=== PATIENT | female | born 1980 | race African-American/Black ===

== ENCOUNTER 2016-08-11 13:05 | Emergency (ER) | payer BC ==
[~2016-08-11] VITALS: Ht 154.9 cm; Wt 79.4 kg
[~2016-08-11 13:05] MED LIST: ANTIVERT25 MG PO; IBUPROFEN 600600 M1 PO; KEFLEX500 MG PO; METHOCARBAMOL PO; NAPROSYN500 MG PO; NORCO 5-325 TA1 EACH PO; ONDANSETRON HCL4 M2 PO; ZOFRAN ODT4 MG PO
[2016-08-11] MEDS ORDERED: METHOCARBAMOL500 M2 PO (13:17)
[2016-08-11] MEDS ORDERED: METHYLPREDNISOLO4 M1 PO (13:17)
[2016-08-11 14:32] LABS: ABSOLUTE NEUTROPHILS 8.2 thou/uL (1.4-8.2); BASOPHILS 0.7 % (0.0-2.0); EOSINOPHILS 0.2 % (0.0-3.0); HEMATOCRIT 37.8 % (37.0-47.0); HEMOGLOBIN 12.7 gm/dL (12.0-15.0); LYMPHOCYTES 16.5 % (24.0-44.0); MCH 24.9 pg (26.0-34.0); MCHC 33.5 g/dL (28.0-37.0); MCV 74.2 fL (80.0-100.0); MONOCYTES 6.1 % (1.0-8.0); PLATELET COUNT 298 thou/uL (150-400); POLYS 76.5 % (36.0-66.0); RBC 5.09 mil/uL (4.20-5.00); RDW 13.8 % (10.5-14.5); WBC 10.7 thou/uL (4.0-11.0)
[2016-08-11 14:35] LABS: MANUAL DIFF NO
[2016-08-11 14:39] LABS: CALCIUM 9.6 mg/dL (8.5-10.1); CREATININE 1.1 mg/dL (0.6-1.3)
[2016-08-11] MEDS ORDERED: HYDROXYZINE HCL25 M1 PO (15:29)
== END 2016-08-11 15:49 | disposition home or self-care (01) ==
LOC: ER 13:05
PROVIDERS: Nurse Practitioner Family
DX: K11.20 Sialoadenitis, unspecified (principal); T78.1XXA Other adverse food reactions, not elsewhere classified, initial encounter; D57.3 Sickle-cell trait; F41.9 Anxiety disorder, unspecified; Z86.2 Personal history of diseases of the blood and blood-forming organs and certain disorders involving the immune mechanism; X58.XXXA Exposure to other specified factors, initial encounter; Z90.710 Acquired absence of both cervix and uterus

== ENCOUNTER 2016-08-22 19:11 | Emergency (ER) | payer BC ==
[~2016-08-22] VITALS: Ht 154.9 cm; Wt 79.4 kg
[~2016-08-22 19:11] MED LIST changes: +HYDROXYZINE HCL25 M1 PO; +METHOCARBAMOL500 M2 PO; +METHYLPREDNISOLO4 M1 PO
[2016-08-22] MEDS ORDERED: FLEXERIL PO ×2 (19:22→20:03)
[2016-08-22] MEDS ORDERED: REGLAN 10 MG TA10 MG PO (19:22)
[2016-08-22] MEDS ORDERED: NORCO 5-325 TA1 EACH PO (20:00)
[2016-08-22] MEDS ORDERED: PREDNISONE 20 M20 MG PO (20:03)
== END 2016-08-22 20:23 | disposition home or self-care (01) ==
LOC: ER 19:11
DX: M51.26 Other intervertebral disc displacement, lumbar region (principal); F41.9 Anxiety disorder, unspecified; D57.3 Sickle-cell trait; Z86.2 Personal history of diseases of the blood and blood-forming organs and certain disorders involving the immune mechanism

== ENCOUNTER 2016-09-08 21:39 | Emergency (ER) | payer BC ==
[~2016-09-08] VITALS: Ht 154.9 cm; Wt 77.1 kg
[~2016-09-08 21:39] MED LIST changes: +FLEXERIL PO; +PREDNISONE 20 M20 MG PO; +REGLAN 10 MG TA10 MG PO
[2016-09-08] MEDS ORDERED: FLEXERIL PO (22:51)
[2016-09-08] MEDS ORDERED: MEDROLDOSEPACK PO (22:51)
[2016-09-08] MEDS ORDERED: MOBIC15 MG PO (22:51)
== END 2016-09-08 23:35 | disposition home or self-care (01) ==
LOC: ER 21:39
DX: T78.1XXA Other adverse food reactions, not elsewhere classified, initial encounter (principal); M54.31 Sciatica, right side; F41.9 Anxiety disorder, unspecified; D57.3 Sickle-cell trait; F17.210 Nicotine dependence, cigarettes, uncomplicated; Z90.710 Acquired absence of both cervix and uterus; Z86.2 Personal history of diseases of the blood and blood-forming organs and certain disorders involving the immune mechanism; X58.XXXA Exposure to other specified factors, initial encounter

== ENCOUNTER 2017-02-01 13:24 | Emergency (ER) | payer BC ==
[~2017-02-01] VITALS: Ht 154.9 cm; Wt 96.6 kg
[~2017-02-01 13:24] MED LIST changes: +ATIVAN0.5 MG PO; +BACTRIM DS TAB1 EACH PO; +MEDROLDOSEPACK PO; +MOBIC15 MG PO
[2017-02-01] MEDS ORDERED: BENADRYL25 MG PO (13:27)
[2017-02-01] MEDS ORDERED: FLEXERIL PO (13:28)
[2017-02-01] MEDS ORDERED: ZYRTEC10 M2 PO (14:12)
[2017-02-01] MEDS ORDERED: PREDNISONE 20 M20 MG PO (14:12)
[2017-02-01] MEDS ORDERED: PEPCID20 MG PO (14:12)
== END 2017-02-01 15:35 | disposition home or self-care (01) ==
LOC: ER 13:24
DX: T78.1XXA Other adverse food reactions, not elsewhere classified, initial encounter (principal); X58.XXXA Exposure to other specified factors, initial encounter; F41.9 Anxiety disorder, unspecified; D57.3 Sickle-cell trait; Z86.2 Personal history of diseases of the blood and blood-forming organs and certain disorders involving the immune mechanism; F17.210 Nicotine dependence, cigarettes, uncomplicated; F10.99 Alcohol use, unspecified with unspecified alcohol-induced disorder; Z90.710 Acquired absence of both cervix and uterus; Z91.013 Allergy to seafood

== ENCOUNTER 2017-03-01 00:05 | Emergency (ER) | payer BC ==
[~2017-03-01] VITALS: Ht 154.9 cm; Wt 96.6 kg
[~2017-03-01 00:05] MED LIST changes: +BENADRYL25 MG PO; +PEPCID20 MG PO; +ZYRTEC10 M2 PO
[2017-03-01] MEDS ORDERED: NORCO 5-325 TA1 EACH PO (02:30)
[2017-03-01] MEDS ORDERED: DOXYCYCLINE 10100 MG PO (02:30)
== END 2017-03-01 03:08 | disposition home or self-care (01) ==
LOC: ER 00:05
DX: L02.31 Cutaneous abscess of buttock (principal); F41.9 Anxiety disorder, unspecified; F17.210 Nicotine dependence, cigarettes, uncomplicated

== ENCOUNTER 2017-07-25 11:34 | Emergency (ER) | payer BC ==
[~2017-07-25] VITALS: Ht 152.4 cm; Wt 90.7 kg
[~2017-07-25 11:34] MED LIST changes: +DOXYCYCLINE 10100 MG PO
[2017-07-25 12:25] LABS: URINE BILIRUBIN NEGATIVE (Negative); URINE BLOOD NEGATIVE (Negative); URINE CLARITY CLEAR; URINE COLOR YELLOW; URINE GLUCOSE-RANDOM* NEGATIVE (Negative); URINE KETONES NEGATIVE (Negative); URINE LEUKOCYTES-REFLEX NEGATIVE (Negative); URINE NITRITE-REFLEX NEGATIVE (Negative); URINE PROTEIN (DIPSTICK) NEGATIVE (Negative); URINE SPECIFIC GRAVITY 1.025 (1.005-1.035); URINE UROBILINOGEN 0.2 E.U./dl (0.2-1.0)
[2017-07-25 13:12] LABS: ABSOLUTE NEUTROPHILS 2.3 thou/uL (1.4-8.2); BASOPHILS 1.2 % (0.0-2.0); EOSINOPHILS 2.4 % (0.0-3.0); HEMATOCRIT 37.5 % (37.0-47.0); HEMOGLOBIN 12.3 gm/dL (12.0-15.0); MCH 23.9 pg (26.0-34.0); MCHC 32.7 g/dL (28.0-37.0); MCV 73.2 fL (80.0-100.0); MONOCYTES 7.9 % (1.0-8.0); PLATELET COUNT 344 thou/uL (150-400); POLYS 45.5 % (36.0-66.0); RBC 5.13 mil/uL (4.20-5.00); RDW 14.4 % (10.5-14.5); WBC 5.1 thou/uL (4.0-11.0)
[2017-07-25 13:17] LABS: CALCIUM 9.3 mg/dL (8.5-10.1); POTASSIUM 3.8 mmol/L (3.5-5.1)
[2017-07-25 13:24] LABS: ALBUMIN 3.7 g/dL (3.4-5.0); TOTAL BILIRUBIN 0.4 mg/dL (<0.1-1.0); TOTAL PROTEIN 7.8 g/dL (6.4-8.2)
[2017-07-25] MEDS ORDERED: NORCO 5-325 TA1 EACH PO (15:27)
[2017-07-25] MEDS ORDERED: SENNA-DOCUSATE1 EACH PO (15:27)
[2017-07-25 16:35] VITALS: BP 123/74
== END 2017-07-25 16:37 | disposition home or self-care (01) ==
LOC: ER 11:34
PROVIDERS: Emergency Medicine
DX: M25.552 Pain in left hip (principal); M25.551 Pain in right hip; R10.32 Left lower quadrant pain; F41.9 Anxiety disorder, unspecified; F17.210 Nicotine dependence, cigarettes, uncomplicated; Z91.013 Allergy to seafood; Z90.710 Acquired absence of both cervix and uterus

== ENCOUNTER 2017-08-23 23:16 | Emergency (ER) | payer BC ==
[~2017-08-23] VITALS: Ht 152.4 cm; Wt 96.2 kg
[~2017-08-23 23:16] MED LIST changes: +SENNA-DOCUSATE1 EACH PO
[2017-08-23 23:59] LABS: URINE BILIRUBIN NEGATIVE (Negative); URINE BLOOD NEGATIVE (Negative); URINE CLARITY SL CLOUDY; URINE COLOR YELLOW; URINE GLUCOSE-RANDOM* NEGATIVE (Negative); URINE KETONES NEGATIVE (Negative); URINE LEUKOCYTES-REFLEX NEGATIVE (Negative); URINE NITRITE-REFLEX NEGATIVE (Negative); URINE PROTEIN (DIPSTICK) NEGATIVE (Negative); URINE SPECIFIC GRAVITY 1.025 (1.005-1.035); URINE UROBILINOGEN 0.2 E.U./dl (0.2-1.0)
[2017-08-24 00:12] LABS: ABSOLUTE NEUTROPHILS 2.5 thou/uL (1.4-8.2); BASOPHILS 0.9 % (0.0-2.0); EOSINOPHILS 2.7 % (0.0-3.0); HEMATOCRIT 36.1 % (37.0-47.0); HEMOGLOBIN 11.8 gm/dL (12.0-15.0); LYMPHOCYTES 53.2 % (24.0-44.0); MCH 24.2 pg (26.0-34.0); MCHC 32.7 g/dL (28.0-37.0); MCV 73.9 fL (80.0-100.0); MONOCYTES 7.1 % (1.0-8.0); PLATELET COUNT 302 thou/uL (150-400); POLYS 36.1 % (36.0-66.0); RBC 4.89 mil/uL (4.20-5.00); RDW 14.2 % (10.5-14.5)
[2017-08-24 00:30] LABS: ANION GAP 12 mmol/L (7-16); BUN 13 mg/dL (7-18); CALCIUM 8.7 mg/dL (8.5-10.1); CHLORIDE 103 mmol/L (98-107); CO2 24 mmol/L (21-32); GLUCOSE 148 mg/dL (74-106); POTASSIUM 3.8 mmol/L (3.5-5.1); SODIUM 139 mmol/L (136-145)
[2017-08-24 00:34] LABS: ALBUMIN 3.5 g/dL (3.4-5.0); DIRECT BILIRUBIN < 0.1 mg/dL (<0.1-0.3); LIPASE 137 U/L (73-393); SGOT 28 U/L (15-37); SGPT 32 U/L (30-65); TOTAL BILIRUBIN 0.2 mg/dL (<0.1-1.0); TOTAL PROTEIN 7.4 g/dL (6.4-8.2)
[2017-08-24] MEDS ORDERED: PHENERGAN 25 MG25 M1 PO (03:19)
== END 2017-08-24 04:00 | disposition home or self-care (01) ==
LOC: ER 23:16
PROVIDERS: Emergency Medicine
DX: R11.2 Nausea with vomiting, unspecified (principal); R10.30 Lower abdominal pain, unspecified; F41.9 Anxiety disorder, unspecified; F17.210 Nicotine dependence, cigarettes, uncomplicated; Z86.2 Personal history of diseases of the blood and blood-forming organs and certain disorders involving the immune mechanism; Z90.710 Acquired absence of both cervix and uterus; Z88.8 Allergy status to other drugs, medicaments and biological substances; Z91.013 Allergy to seafood

== ENCOUNTER 2017-10-21 15:31 | Emergency (ER) | payer BC ==
[~2017-10-21] VITALS: Ht 154.9 cm; Wt 94.3 kg
--- NOTE | ~2017-10-21 | EKG ---
[address] [address] ELECTROCARDIOGRAM REPORT Name: WARREN OSBORNE Tess Room #: [facility]#: [id number] Admission: 10/21/17 Attend Phys: Discharge: 10/21/17 Date of : 76 Report #: [id number] THIS REPORT FOR: //name// [facility] ED Test Date: 2017-10-21 Test Time: 15:46:02 Pat Name: WARREN OSBORNE Department: Room: Gender: F Licensed Midwife: lindseygj : 1980 Requested By: Pardeep Jacob Order Number: [id number] MD: Juan Luis Rockwell Measurements Intervals [place] Rate: 81 P: 60 MI: 144 QRS: 18 QRSD: 88 T: 21 QT: 386 QTc: 448 Interpretive Statements Sinus rhythm Normal tracing Compared to ECG 12/28/2016 21:14:20 No significant changes Electronically Signed On 10-22-2017 7:43:44 CDT by Juan Luis Rockwell [email or web address] <ELECTRONICALLY SIGNED> By: Juan Luis Rockwell MD, [facility] 10/22/17 0743 D: 05/1545 154 Juan Luis Rockwell MD, FACC /EPI
[~2017-10-21 15:31] MED LIST changes: +PHENERGAN 25 MG25 M1 PO
[2017-10-21 16:01] LABS: ABSOLUTE NEUTROPHILS 2.4 thou/uL (1.4-8.2); BASOPHILS 0.9 % (0.0-2.0); EOSINOPHILS 1.4 % (0.0-3.0); HEMATOCRIT 38.8 % (37.0-47.0); HEMOGLOBIN 12.7 gm/dL (12.0-15.0); LYMPHOCYTES 45.9 % (24.0-44.0); MCH 23.8 pg (26.0-34.0); MCHC 32.7 g/dL (28.0-37.0); MCV 72.8 fL (80.0-100.0); MONOCYTES 7.9 % (1.0-8.0); PLATELET COUNT 315 thou/uL (150-400); POLYS 43.9 % (36.0-66.0); RBC 5.33 mil/uL (4.20-5.00); WBC 5.6 thou/uL (4.0-11.0)
[2017-10-21 16:14] LABS: ANION GAP 9 mmol/L (7-16); BUN 12 mg/dL (7-18); CALCIUM 9.8 mg/dL (8.5-10.1); CHLORIDE 103 mmol/L (98-107); CO2 26 mmol/L (21-32); CREATININE 1.2 mg/dL (0.6-1.0); GLUCOSE 127 mg/dL (74-106); POTASSIUM 4.1 mmol/L (3.5-5.1); SODIUM 138 mmol/L (136-145)
[2017-10-21 16:23] LABS: TROPONIN-I < 0.04 ng/mL (<0.06)
[2017-10-21 17:13] LABS: URINE BILIRUBIN NEGATIVE (Negative); URINE BLOOD NEGATIVE (Negative); URINE CLARITY CLEAR; URINE COLOR YELLOW; URINE GLUCOSE-RANDOM* NEGATIVE (Negative); URINE KETONES NEGATIVE (Negative); URINE LEUKOCYTES-REFLEX NEGATIVE (Negative); URINE NITRITE-REFLEX NEGATIVE (Negative); URINE PROTEIN (DIPSTICK) NEGATIVE (Negative); URINE SPECIFIC GRAVITY 1.015 (1.005-1.035); URINE UROBILINOGEN 0.2 E.U./dl (0.2-1.0)
== END 2017-10-21 17:31 | disposition home or self-care (01) ==
LOC: ER 15:31
PROVIDERS: Physician Assistant
DX: R55 Syncope and collapse (principal); R42 Dizziness and giddiness; R53.1 Weakness; F41.9 Anxiety disorder, unspecified; D57.3 Sickle-cell trait; F17.210 Nicotine dependence, cigarettes, uncomplicated; Z91.013 Allergy to seafood; Z86.2 Personal history of diseases of the blood and blood-forming organs and certain disorders involving the immune mechanism

== ENCOUNTER 2018-03-30 20:24 | Emergency (ER) | payer BC ==
[~2018-03-30] VITALS: Ht 154.9 cm; Wt 102.1 kg
[2018-03-30 21:05] LABS: ABSOLUTE NEUTROPHILS 3.1 thou/uL (1.4-8.2); BASOPHILS 1.1 % (0.0-2.0); EOSINOPHILS 2.4 % (0.0-3.0); HEMATOCRIT 40.8 % (37.0-47.0); HEMOGLOBIN 13.6 gm/dL (12.0-15.0); LYMPHOCYTES 43.4 % (24.0-44.0); MCH 24.1 pg (26.0-34.0); MCHC 33.3 g/dL (28.0-37.0); MCV 72.3 fL (80.0-100.0); MONOCYTES 11.2 % (1.0-8.0); PLATELET COUNT 340 thou/uL (150-400); POLYS 41.9 % (36.0-66.0); RBC 5.65 mil/uL (4.20-5.00); RDW 14.5 % (10.5-14.5); WBC 7.5 thou/uL (4.0-11.0)
[2018-03-30 21:12] LABS: CALCIUM 9.8 mg/dL (8.5-10.1); CREATININE 1.2 mg/dL (0.6-1.0); POTASSIUM 3.6 mmol/L (3.5-5.1)
[2018-03-30 21:18] LABS: TOTAL BILIRUBIN 0.4 mg/dL (<0.1-1.0); TOTAL PROTEIN 8.5 g/dL (6.4-8.2)
[2018-03-30 21:58] LABS: URINE BILIRUBIN NEGATIVE (Negative); URINE BLOOD NEGATIVE (Negative); URINE CLARITY CLEAR; URINE COLOR YELLOW; URINE GLUCOSE-RANDOM* NEGATIVE (Negative); URINE KETONES NEGATIVE (Negative); URINE LEUKOCYTES NEGATIVE (Negative); URINE NITRITE NEGATIVE (Negative); URINE PROTEIN (DIPSTICK) NEGATIVE (Negative); URINE SPECIFIC GRAVITY <= 1.005 (1.005-1.035); URINE UROBILINOGEN 0.2 E.U./dl (0.2-1.0)
[2018-03-30] MEDS ORDERED: NORFLEX100 MG PO (23:08)
[2018-03-30] MEDS ORDERED: PREDNISONE 10 M10 MG PO (23:08)
[2018-03-30] MEDS ORDERED: ZOFRAN ODT4 MG PO (23:08)
[2018-03-30] MEDS ORDERED: NORCO 5-325 TA1 EACH PO (23:27)
[2018-03-30 23:41] VITALS: BP 145/99
== END 2018-03-30 23:43 | disposition home or self-care (01) ==
LOC: ER 20:24
PROVIDERS: Physician Assistant
DX: R11.2 Nausea with vomiting, unspecified (principal); M54.42 Lumbago with sciatica, left side; F17.210 Nicotine dependence, cigarettes, uncomplicated; E66.01 Morbid (severe) obesity due to excess calories; K21.9 Gastro-esophageal reflux disease without esophagitis; M48.00 Spinal stenosis, site unspecified; Z68.41 Body mass index [BMI] 40.0-44.9, adult; Z91.013 Allergy to seafood; Z90.710 Acquired absence of both cervix and uterus; Z86.2 Personal history of diseases of the blood and blood-forming organs and certain disorders involving the immune mechanism

== ENCOUNTER 2018-09-22 19:14 | Emergency (ER) | payer BC ==
[~2018-09-22] VITALS: Ht 152.4 cm; Wt 49.9 kg
[~2018-09-22 19:14] MED LIST changes: +NORFLEX100 MG PO; +PREDNISONE 10 M10 MG PO
[2018-09-22] MEDS ORDERED: LEXAPRO20 MG PO (19:30)
[2018-09-22] MEDS ORDERED: OMEPRAZOLE 20 M20 M1 PO (19:30)
[2018-09-22] MEDS ORDERED: FLONASE 0.05%50 MCG NASAL (19:30)
[2018-09-22] MEDS ORDERED: IBUPROFEN200 M1 PO (19:31)
[2018-09-22] MEDS ORDERED: IBUPROFEN 600600 M1 PO (19:34)
[2018-09-22] MEDS ORDERED: AMOXICILLIN500 M1 PO (19:34)
[2018-09-22 19:43] VITALS: BP 130/79
== END 2018-09-22 19:46 | disposition home or self-care (01) ==
LOC: ER 19:14
DX: H66.91 Otitis media, unspecified, right ear (principal); H72.91 Unspecified perforation of tympanic membrane, right ear; F17.210 Nicotine dependence, cigarettes, uncomplicated; Z90.710 Acquired absence of both cervix and uterus; Z79.899 Other long term (current) drug therapy

== ENCOUNTER 2018-10-27 17:17 | Emergency (ER) | payer BC ==
[~2018-10-27] VITALS: Ht 154.9 cm; Wt 95.3 kg
[~2018-10-27 17:17] MED LIST changes: +AMOXICILLIN500 M1 PO; +FLONASE 0.05%50 MCG NASAL; +IBUPROFEN200 M1 PO; +LEXAPRO20 MG PO; +OMEPRAZOLE 20 M20 M1 PO
[2018-10-27 19:54] VITALS: BP 110/63
== END 2018-10-27 19:56 | disposition home or self-care (01) ==
LOC: ER 17:17
DX: L02.211 Cutaneous abscess of abdominal wall (principal); F41.9 Anxiety disorder, unspecified; E66.01 Morbid (severe) obesity due to excess calories; F17.210 Nicotine dependence, cigarettes, uncomplicated; Z68.39 Body mass index [BMI] 39.0-39.9, adult; Z91.013 Allergy to seafood; Z90.710 Acquired absence of both cervix and uterus; Z86.2 Personal history of diseases of the blood and blood-forming organs and certain disorders involving the immune mechanism

== ENCOUNTER 2019-06-06 12:41 | Emergency (ER) | payer BC ==
[~2019-06-06] VITALS: Ht 152.4 cm; Wt 86.6 kg
[2019-06-06 13:38] LABS: URINE BILIRUBIN 1+ (Negative); URINE BLOOD TRACE (Negative); URINE CLARITY CLEAR; URINE COLOR YELLOW; URINE GLUCOSE-RANDOM* NEGATIVE (Negative); URINE KETONES 1+ (Negative); URINE LEUKOCYTES-REFLEX NEGATIVE (Negative); URINE NITRITE-REFLEX NEGATIVE (Negative); URINE PROTEIN (DIPSTICK) NEGATIVE (Negative); URINE SPECIFIC GRAVITY >= 1.030 (1.005-1.035)
[2019-06-06 13:40] LABS: ICTOTEST (BILI CONFIRMATORY) Positive (Negative)
[2019-06-06 13:50] LABS: EOSINOPHILS 1.4 % (0.0-3.0); HEMATOCRIT 43.2 % (37.0-47.0); HEMOGLOBIN 14.3 gm/dL (12.0-15.0); LYMPHOCYTES 40.4 % (24.0-44.0); MCH 24.7 pg (26.0-34.0); MCV 74.9 fL (80.0-100.0); MONOCYTES 7.3 % (1.0-8.0); PLATELET COUNT 294 thou/uL (150-400); POLYS 49.9 % (36.0-66.0); RBC 5.77 mil/uL (4.20-5.00); RDW 14.6 % (10.5-14.5); WBC 6.1 thou/uL (4.0-11.0)
[2019-06-06 14:04] LABS: CALCIUM 9.8 mg/dL (8.5-10.1); CREATININE 1.1 mg/dL (0.6-1.0); POTASSIUM 3.5 mmol/L (3.5-5.1)
[2019-06-06 14:10] LABS: ALBUMIN 4.1 g/dL (3.4-5.0); TOTAL BILIRUBIN 0.7 mg/dL (<0.1-1.0); TOTAL PROTEIN 8.5 g/dL (6.4-8.2)
[2019-06-06 15:07] VITALS: BP 129/76
[2019-06-06] MEDS ORDERED: MECLIZINE HCL25 MG PO (15:53)
[2019-06-06] MEDS ORDERED: ONDANSETRON HCL4 M2 PO (15:53)
[2019-06-06] MEDS ORDERED: NORCO 5-325 TA1 EAC1 PO (15:55)
== END 2019-06-06 16:10 | disposition home or self-care (01) ==
LOC: ER 12:41
PROVIDERS: Physician Assistant
DX: R10.32 Left lower quadrant pain (principal); R11.2 Nausea with vomiting, unspecified; R05 Cough; E66.01 Morbid (severe) obesity due to excess calories; D57.3 Sickle-cell trait; F41.9 Anxiety disorder, unspecified; F17.210 Nicotine dependence, cigarettes, uncomplicated; Z68.37 Body mass index [BMI] 37.0-37.9, adult; Z90.710 Acquired absence of both cervix and uterus; Z86.2 Personal history of diseases of the blood and blood-forming organs and certain disorders involving the immune mechanism; Z91.013 Allergy to seafood

== ENCOUNTER 2020-07-23 18:14 | Emergency (ER) | payer OTHER ==
[~2020-07-23] VITALS: Ht 152.4 cm; Wt 77.1 kg
[~2020-07-23 18:14] MED LIST changes: +MECLIZINE HCL25 MG PO; +NORCO 5-325 TA1 EAC1 PO
[2020-07-23] MEDS ORDERED: CHANTIX1 MG PO (19:20)
[2020-07-23] MEDS ORDERED: VITAMIN D3 COM1 EACH PO (19:21)
[2020-07-23 19:24] LABS: URINE BILIRUBIN NEGATIVE (Negative); URINE BLOOD NEGATIVE (Negative); URINE CLARITY CLEAR; URINE COLOR YELLOW; URINE GLUCOSE-RANDOM* NEGATIVE (Negative); URINE KETONES NEGATIVE (Negative); URINE LEUKOCYTES-REFLEX NEGATIVE (Negative); URINE NITRITE-REFLEX NEGATIVE (Negative); URINE PROTEIN (DIPSTICK) NEGATIVE (Negative); URINE SPECIFIC GRAVITY 1.025 (1.005-1.035); URINE UROBILINOGEN 0.2 E.U./dl (0.2-1.0)
[2020-07-23 19:40] LABS: AMP/METHAMP Negative (Negative); BARBITURATES Negative (Negative); BENZODIAZEPINES Negative (Negative); COCAINE Negative (Negative); METHADONE Negative (Negative); OPIATES Negative (Negative); PCP Negative (Negative)
[2020-07-23 20:13] LABS: ABSOLUTE NEUTROPHILS 5.6 thou/uL (1.4-8.2); BASOPHILS 0.5 % (0.0-2.0); EOSINOPHILS 0.6 % (0.0-3.0); HEMATOCRIT 42.1 % (37.0-47.0); HEMOGLOBIN 13.8 gm/dL (12.0-15.0); LYMPHOCYTES 22.6 % (24.0-44.0); MCH 25.3 pg (26.0-34.0); MCHC 32.7 g/dL (28.0-37.0); MCV 77.3 fL (80.0-100.0); MONOCYTES 3.2 % (1.0-8.0); PLATELET COUNT 348 thou/uL (150-400); POLYS 73.1 % (36.0-66.0); RBC 5.45 mil/uL (4.20-5.00); WBC 7.6 thou/uL (4.0-11.0)
[2020-07-23 20:39] LABS: CALCIUM 9.3 mg/dL (8.5-10.1); POTASSIUM 3.5 mmol/L (3.5-5.1)
[2020-07-23 20:44] LABS: TOTAL BILIRUBIN 0.2 mg/dL (0.2-1.0)
[2020-07-23] MEDS ORDERED: ZOFRAN ODT4 MG PO (21:55)
[2020-07-23 22:20] VITALS: BP 124/80
== END 2020-07-23 22:21 | disposition home or self-care (01) ==
LOC: ER 18:14
PROVIDERS: Emergency Medicine
DX: R11.2 Nausea with vomiting, unspecified (principal); F17.210 Nicotine dependence, cigarettes, uncomplicated; Z86.2 Personal history of diseases of the blood and blood-forming organs and certain disorders involving the immune mechanism; Z90.710 Acquired absence of both cervix and uterus; Z79.899 Other long term (current) drug therapy; Z91.013 Allergy to seafood